=== PATIENT | female | born 1985 | race Asian ===

== ENCOUNTER 2019-05-30 23:18 | Emergency (ER) | payer OTHER ==
[~2019-05-30] VITALS: Ht 154.9 cm; Wt 123.8 kg
[2019-05-30 23:25] VITALS: TEMP 98.1
[2019-05-31 00:36] LABS: PLATELET COUNT 320 K/uL (152-353)
[2019-05-31 00:45] LABS: POTASSIUM 3.6 mmol/L (3.6-5.2)
[2019-05-31 03:30] VITALS: BP 125/76
== END 2019-05-31 03:30 | disposition home or self-care (01) ==
LOC: ED 23:18
PROVIDERS: Family Medicine
DX: K58.9 Irritable bowel syndrome, unspecified (principal); R31.9 Hematuria, unspecified; R10.31 Right lower quadrant pain
CPT/HCPCS: 80053; 81000; 85027; 96374; 96375; 99284; J1885; J2405; Q9963

== ENCOUNTER 2020-09-10 19:02 | Emergency (ER) | payer OTHER ==
[~2020-09-10] VITALS: Ht 154.9 cm; Wt 123.8 kg
[2020-09-10 19:41] LABS: PARTIAL THROMBOPLASTIN TIME 27.9 SECONDS (24.5-33.6)
[2020-09-10 19:42] LABS: PLATELET COUNT 338 K/uL (152-353); POTASSIUM 3.8 mmol/L (3.6-5.2); SODIUM 139 mmol/L (136-145)
[2020-09-10 23:35] VITALS: BP 104/66; TEMP 98.2
== END 2020-09-10 23:35 | disposition short-term general hospital (02) ==
LOC: ED 19:02
PROVIDERS: Family Medicine
DX: R56.9 Unspecified convulsions (principal); I63.89 Other cerebral infarction
CPT/HCPCS: 36415; 51702; 80053; 80307; 81000; 81025; 82728; 84484; 85027; 85379; 85610; 85730; 93005; 96365; 96366; 96374; 96375; 99285; J1953; J2060; J3490

== ENCOUNTER 2021-06-28 08:42 | Outpatient (CLI) | payer OTHER | END 2021-06-28 20:32 | disposition home or self-care (01) | LOC: US 08:42 | PROVIDERS: ATTEND Physician Assistant | DX: R14.0 Abdominal distension (gaseous) (principal); N64.4 Mastodynia ==

== ENCOUNTER 2021-08-09 08:21 | Outpatient (CLI) | payer OTHER | END 2021-08-09 21:51 | disposition home or self-care (01) | LOC: MAMMO 08:21 | PROVIDERS: ATTEND Obstetrics & Gynecology | DX: Z12.31 Encounter for screening mammogram for malignant neoplasm of breast (principal) ==